=== PATIENT | male | born 1980 | race American Indian/Alaskan Native ===

== ENCOUNTER 2022-01-12 01:18 | Emergency (ER) | payer OTHER ==
--- NOTE | 2022-01-12 04:15 | Emergency Department Report ---
- General Chief Complaint: Upper Respiratory Infection Stated Complaint: FEELING SICK Time Seen by Provider: 01/12/22 04:00 Source: patient Mode of arrival: Ambulatory Limitations: No Limitations - History of Present Illness Initial Comments: 42-year-old male with no significant past medical history presents to the hospital complaining of fever and infectious symptoms since yesterday. Patient having a bitemporal/frontal headache that is intermittent, mild to moderate, and worse with cough. He complains of cough productive of yellow sputum, body aches, and nasal congestion. He denies wheezing, shortness of breath, nausea, vomiting, throat pain, neck pain, focal weakness or numbness. He is unvaccinated for COVID. States that he has been exposed to COVID at his job - Related Data Previous Rx's Medication Instructions Recorded Last Taken Type Benzonatate [Tessalon Perles] 100 mg PO Q8HR PRN #20 cap 01/12/22 Unknown Rx Ibuprofen [Motrin] 800 mg PO Q8HR PRN #30 tablet 01/12/22 Unknown Rx Pseudoephedrine [Sudafed] 60 mg PO Q6HR PRN #20 tab 01/12/22 Unknown Rx Allergies Allergy/AdvReac Type Severity Reaction Status Date / Time No Known Allergies Allergy Verified 01/12/22 01:44 ED Review of Systems ROS: Stated complaint: FEELING SICK Other details as noted in HPI Comment: All other systems reviewed and negative ED Past Medical Hx - Medications Home Medications: Home Medications Medication Instructions Recorded Confirmed Last Taken Type Benzonatate [Tessalon Perles] 100 mg PO Q8HR PRN #20 cap 01/12/22 Unknown Rx Ibuprofen [Motrin] 800 mg PO Q8HR PRN #30 tablet 01/12/22 Unknown Rx Pseudoephedrine [Sudafed] 60 mg PO Q6HR PRN #20 tab 01/12/22 Unknown Rx ED Physical Exam - General Limitations: No Limitations - Other Other exam information: General: No acute distress Head: Atraumatic Eyes: normal appearance ENT: Moist mucous membranes Neck: Normal appearance, no midline tenderness, no nuchal rigidity Chest: Clear to auscultation bilaterally CV: Regular rate and rhythm Abdomen: Soft, normal bowel sounds, nontender, nondistended, no rebound or guarding Back: Normal inspection Extremity: Normal inspection, full range of motion Neuro: Alert O x 3, no facial asymmetry, speech clear, no gross motor sensory deficit Psych: Appropriate behavior Skin: No rash ED Course Vital Signs 01/12/22 01:42 Temperature 98.8 F Pulse Rate 90 Respiratory 18 Rate Blood Pressure 114/66 O2 Sat by Pulse 100 Oximetry ED Medical Decision Making - Medical Decision Making 42-year-old male unvaccinated for COVID presents to the hospital with viral symptoms after possible COVID exposure at work. Patient is not hypoxic and has normal vital signs. He will be treated symptomatically. Encouraged to obtain an outpatient COVID test and follow-up with the PMD Critical Care Time: No Critical care attestation.: If time is entered above; I have spent that time in minutes in the direct care of this critically ill patient, excluding procedure time. ED Disposition Clinical Impression: Viral respiratory illness Disposition: HOME / SELF CARE / HOMELESS Is pt being admited?: No Does the pt Need Aspirin: No Condition: Stable Instructions: Viral Respiratory Infection, COVID-19 Additional Instructions: Take medications as prescribed. You have a viral respiratory illness which may be due to COVID 19. I recommend that you obtain outpatient or [id number] COVID test to determine your COVID status. Viral illnesses including COVID are treated symptomatically unless symptoms are severe as indicated by your discharge instructions. You may also take Tylenol as needed for pain and fever in addition to the prescribed Motrin. Please return if symptoms worsen. Follow-up with your doctor or doctor/clinic provided Prescriptions: Ibuprofen [Motrin] 800 mg PO Q8HR PRN #30 tablet PRN Reason: Pain , Severe (7-10) Pseudoephedrine [Sudafed] 60 mg PO Q6HR PRN #20 tab PRN Reason: Nasal Congestion Benzonatate [Tessalon Perles] 100 mg PO Q8HR PRN #20 cap PRN Reason: Cough Referrals: [facility] [Provider Group] - 3-5 Days MONI PHAM MD [Staff Physician] - 3-5 Days Forms: Work/School Release Form(ED) Time of Disposition: 04:17
[2022-01-12 04:27] VITALS: BP 121/74
== END 2022-01-12 05:20 | disposition home or self-care (01) ==
LOC: ED 01:18
DX: J98.8 Other specified respiratory disorders (principal)
CPT/HCPCS: 99282